=== PATIENT | male | born 1985 | race Two or more races ===

== ENCOUNTER 2017-09-04 06:54 | Day surgery (SDC) | payer OTHER ==
[2017-08-30 15:51] VITALS: BMI 45.3
[~2017-09-04 06:54] MED LIST: LACTATED RINGERS 1,000 ML IV SCH
[2017-09-04] MEDS ORDERED: LIDOCAINE 1% 20 ML VIAL (10MG/ML) FOR IV START INTRADERMA ONE (07:11)
[2017-09-04 07:23] VITALS: TEMP 96.4
--- NOTE | 2017-09-04 08:37 | P.PCN ---
Date of Procedure: 09/04/17 Procedure(s) Performed: Preoperative diagnosis: Pseudotumor cerebri Post operative diagnoses: Pseudotumor cerebri Anesthesia local infiltration with lidocaine 1% 2 mL., and IV sedation with Versed 2 mg and fentanyl 100 g Condition: stable Complication: none. Description of the procedure procedure risk and benefits discussed with the patient ,and, consent signed. Patient and the procedure area placed in left lateral position back prepped with chlorhexidine 3 times been local infiltration of the skin and subcutaneous tissue with lidocaine 1% 2 mL for skin and subcu interstitial frustrations at L4 5 levels then 22-gauge Quincke- type needle advanced slowly at L4- 5 interlaminar space there was positive cerebrospinal fluid which was clear, no heme, no paresthesia ,total of 18 ML of clear cerebrospinal fluid collected in 4 different tubes 4-5 mL in each, then the needle removed and a Band-Aid applied and patient tolerated the procedure well without any complications. opening pressure= 52 cm of water. Closing pressure= 20 cm of water. Volume removed= 18 mL of clear cerebrospinal fluid.
[2017-09-04 08:47] VITALS: RESP 18
[2017-09-04 09:19] VITALS: BP 106/68; PULSE 75
[2017-09-04] MEDS ORDERED: IV FLUID CONTINUATION 1,000 ML IV ONE (09:47)
[2017-09-04 10:03] LABS: Glucose,CSF 60 mg/dL (40-70)
[2017-09-04 10:11] LABS: Appearance,CSF Clear
== END 2017-09-04 09:53 | disposition home or self-care (01) ==
LOC: ORPAIN 06:54
PROVIDERS: ATTEND Specialist
DX: G93.2 Benign intracranial hypertension (principal); I10 Essential (primary) hypertension; Z88.1 Allergy status to other antibiotic agents; Z88.0 Allergy status to penicillin
CPT/HCPCS: 88108; 84157; 82945; 89050; 62270; J2250; J3010; 99152; 99153